=== PATIENT | female | born 1995 | race Caucasian/White ===

== ENCOUNTER 2023-09-08 17:16 | Emergency (ER) | payer OTHER, SELFPAY ==
[2023-09-08] VITALS (9 sets, daily range): BP systolic 134–153; BP diastolic 76–81; PULSE 86–101; RESP 15–26; TEMP 36.9; O2SAT 96–99; BMI 28.6
--- NOTE | 2023-09-08 17:39 | XR_ITS ---
The [address] [address] Patient Name: SKYLAR ROMERO MRN: [id number] date: 1995 Sex: F Assigned Patient Location: ER Current Patient Location: ER Accession/Order Number: [id number] Exam Date: 09/08/2023 17:45 Report Date: 09/08/2023 19:21 At the request of: SANDRA SOLIS Procedure: XR chest 2V EXAM: XR chest 2V REASON FOR EXAM: Female, 28 years, pain. TECHNIQUE: PA and lateral views of the chest are performed. COMPARISON: None. FINDINGS: The lungs are expanded and clear. Normal pleura. Normal size heart. Normal mediastinum and kaushik. Normal visualized pulmonary arteries. Normal visualized aortic arch and descending thoracic aorta. Normal visualized thoracic spine. Normal visualized ribs, clavicles, and shoulders. There is no demonstrated abnormality of the visualized soft tissue structures of the upper abdomen. XR/XR chest 2V IMPRESSION: Normal examination of the chest. Electronically authenticated by: ANURAG CHOUDHURY Date: 09/08/2023 19:21
--- NOTE | 2023-09-08 17:39 | ECG_ITS ---
The [facility] Test Date: 2023-09-08 Pat Name: SKYLAR ROMERO Department: Room: - Gender: Female [employer]: : 1995 Requested By: [id number] Order Number: [id number] Reading MD: HANNAH LUI Measurements Intervals [place] Rate: 87 P: 60 DC: 134 QRS: 86 QRSD: 130 T: 51 QT: 382 QTc: 426 Interpretive Statements 1100 Sinus rhythm 2450 Right bundle branch block 9150 abnormal ECG No previous ECG available for comparison Electronically Signed On 09-08-2023 18:27:26 EST by HANNAH LUI
[2023-09-08] MEDS: ALPRAZOLAM 0.25 MG TABLET PO (18:04)
--- NOTE | 2023-09-08 18:06 | ED_ITS ---
HPI - Dizziness General Chief Complaint: Dizziness Stated Complaint: UE NUMBNESS/CHEST PAIN Time Seen by Provider: 09/08/23 17:34 Source: patient Mode of arrival: walk-in Limitations: no limitations History of Present Illness HPI Narrative: 28-year-old female presents with a chief complaint of tingling to the hand and right side of her face. 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 She states she pulled over and got something to eat. The symptoms numbness and tingling to hands and face then followed.She is alert and oriented. She states that a history of anxiety in the past with similar symptoms. She denies any hyperventilation. She states she's had a lot going on her life recently. She had spots on her cervix and had to have a LEEP procedure performed. No acute shortness of breath or chest pain with activity Related Data Allergies Allergy/AdvReac Type Severity Reaction Status Date / Time cetirizine [From Zyrtec] AdvReac Flushing Verified 09/08/23 17:27 Review of Systems ROS Narrative All Systems are negative except as noted/marked.All systems reviewed and otherwise negative Exam Narrative Exam Narrative: Patient is a All Systems are negative except as noted/marked.All systems reviewed and otherwise negative Nurses note and vital signs reviewed and patient is not hypoxic. General: The patient appears well and in no apparent distress. Patient is resting comfortably on cart. Skin: Warm, dry, no pallor noted. There is no rash noted. Head: Normocephalic, atraumatic Eye: Normal conjunctiva, no drainage, EOMI. PERRL Ears, Nose, Mouth, and Throat: oral mucosa is moist. Nares patent. Mouth without vesicles. Ear canals patent. Tm's without Erythema Cardiovascular: Regular Rate and Rhythm Respiratory: Patient is in no distress, no accessory muscle use, lungs are clear to auscultation, no wheezing, rales or rhonchi Back: non-tender, no CVA tenderness bilaterally to percussion. GI: Normal bowel sounds, no tenderness to palpation, no masses appreciated. No rebound, guarding, or rigidity noted. Musculoskeletal: The patient has no evidence of calf tenderness, no pitting edema, symmetrical pulses noted bilaterally Neurological: A&O x4, normal speech Psychiatric: Cooperative Constitutional Vital Signs, click to edit/add: Last Vital Signs Temp 98.4 F 09/08/23 17:27 Pulse 96 H 09/08/23 18:20 Resp 22 09/08/23 18:20 BP 135/78 09/08/23 18:00 Pulse Ox 97 09/08/23 18:20 O2 Del Method Room Air 09/08/23 17:33 Course Vital Signs Vital signs: Vital Signs Pulse Rate 86 09/08/23 17:26 Respiratory Rate 17 09/08/23 17:26 Pulse Oximetry 97 09/08/23 17:26 Temperature 98.4 F 09/08/23 17:27 Pulse Rate 96 H 09/08/23 18:20 Respiratory Rate 22 09/08/23 18:20 Blood Pressure 135/78 09/08/23 18:00 Pulse Oximetry 97 09/08/23 18:20 Oxygen Delivery Method Room Air 09/08/23 17:33 MDM - Dizziness MDM Narrative Medical decision making narrative: Presented here chief complaint of numbness and tingling to her hands and face. Symptoms have subsided but patient still complains of chest cage he review showed no acute STEMI. Patient's heart score is zero. Patient's medicated here with one Ativan. Chest x-ray is also negative. Patient states she had a hypoglycemic attack prior to the symptoms she was having. Glucose is one ninety- two here. Patient is stable be discharged home. Medical Records Attestation: I reviewed the patient's medical records. Lab Data Attestation: I reviewed the patient's lab results. Labs: Lab Results 09/08/23 Range/Units 18:04 POC Glucose 192 H (74-106) mg/dL ECG Data Attestation: ?I have reviewed the pertinent ECG results. Interpretation: 1726 EKG showed normal sinus rhythm with rate of 87 bpm HI interval 134 ms QRS duration 130 ms, no STEMI. Discharge Plan Discharge Chief Complaint: Dizziness Clinical Impression: Stress reaction, Chest wall pain Patient Disposition: Home, Self-Care Time of Disposition Decision: 19:28 Condition: Good Instructions: Stress (ED), Chest Wall Pain (ED) Stand Alone Forms: Portal Instructions Referrals: Physician,Non-Staff, MD [Primary Care Provider] - 1 week Discharge Date/Time: 09/08/23 19:55
[2023-09-08 18:07] LABS: Glucometer 192 mg/dL (74-106)
== END 2023-09-08 19:55 | disposition home or self-care (01) ==
PROVIDERS: Emergency Provider Emergency Medicine
DX: R07.89 Other chest pain (principal); F43.9 Reaction to severe stress, unspecified
CPT/HCPCS: 36415; 71046; 82948; 93005; 99284